=== PATIENT | male | born 1960 | race Caucasian/White ===

== ENCOUNTER → 2024-10-02 07:46 | Outpatient (REF) | payer BC, SELFPAY | LOC: HWRAD 07:46 | PROVIDERS: ATTENDING PHYSICIAN Family Medicine | DX: R94.5 Abnormal results of liver function studies (principal) | CPT/HCPCS: 76700 ==

== ENCOUNTER → 2025-02-18 11:05 | Outpatient (REF) | payer OTHER, SELFPAY | LOC: RCS 11:05 | PROVIDERS: ATTENDING PHYSICIAN Nurse Practitioner; FAMILY PHYSICIAN Family Medicine | DX: I10 Essential (primary) hypertension (principal); I25.10 Atherosclerotic heart disease of native coronary artery without angina pectoris; R07.89 Other chest pain; Z82.49 Family history of ischemic heart disease and other diseases of the circulatory system; E78.2 Mixed hyperlipidemia | CPT/HCPCS: 78452; 93017; A9500 ==